=== PATIENT | male | born 1950 | race Caucasian/White ===

== ENCOUNTER 2023-05-04 09:08 | Emergency (ER) | payer MEDICAID ==
[~2023-05-04] VITALS: Ht 167.6 cm; Wt 68.0 kg
[2023-05-04 09:21] VITALS: BP_SYST 160; PULSE 80; RESP 18; TEMP 98; O2SAT 97
--- NOTE | 2023-05-04 09:23 | NUR ---
RECEIVED PT FROM FANNY JEFFERSON. ASSUMED CARE. PT BIB [facility]ILY [facility] WITH C/O BEING UNABLE TO SLEEP DUE TO NEUROPATHY. PT IS AAOX4. ON R/A. A/V SHUNT IN PLACE AND PT HAS DIALYSIS. PMH DM1, HTN, NEUROPATHY. VSS. SIDERAILS UP X2.
--- NOTE | 2023-05-04 09:27 | NUR ---
DR. ARRIETA AT BEDSIDE TO ASSESS PT.
[2023-05-04] MEDS ORDERED: hydrALAZINE HCL 20 MG/ML VIAL IVP ONE (09:30)
[2023-05-04] MEDS ORDERED: ENALAPRILAT DIHYDRATE 1.25 MG/ML VIAL IVP ONE (09:30)
--- NOTE | 2023-05-04 09:55 | NUR ---
# 20 gauge angiocath placed to RH. Use of asceptic technique. Opsite placed over site. Blood return noted. Blood for lab drawn from site. Flushed with 10 cc of normal saline. No evidence of infiltration noted. Patient tolerated well.
[2023-05-04 09:58] LABS: BASOPHILS # (AUTO) 0.1 K/uL (0.0-0.2); EOSINOPHILS # (AUTO) 0.2 K/uL (0.0-0.4); EOSINOPHILS % (AUTO) 2.5 % (0.0-4.0); HEMATOCRIT 36.4 % (36-54); HEMOGLOBIN 11.8 g/dL (14.0-18.0); LYMPHOCYTES # (AUTO) 1.8 K/uL (1.0-5.5); LYMPHOCYTES % (AUTO) 28.2 % (20.5-51.5); MEAN CORPUSCULAR HEMOGLOBIN 31 pg (27-31); MEAN CORPUSCULAR HGB CONC 33 % (32-36); MEAN CORPUSCULAR VOLUME 95 fL (79.0-98.0); MONOCYTES # (AUTO) 0.9 K/uL (0.0-1.0); MONOCYTES % (AUTO) 13.4 % (1.7-9.3); NEUTROPHILS # (AUTO) 3.6 K/uL (1.8-7.7); NEUTROPHILS % (AUTO) 54.9 % (40.0-70.0); PLATELET COUNT (AUTO) 264 K/uL (130-430); RED BLOOD CELL COUNT(AUTO) 3.85 MIL/uL (4.2-6.2); RED CELL DISTRIBUTION WIDTH 16.7 % (9.0-15.0); WHITE BLOOD COUNT (AUTO) 6.5 K/uL (4.8-10.8)
[2023-05-04 10:03] LABS: ANION GAP 13 (5-15); CALCIUM 9.7 mg/dL (8.4-11.0); CHLORIDE 97 mmol/L (98-107); CREATININE 6.79 mg/dL (0.55-1.30); GLUCOSE 139 mg/dL (74-106); UREA NITROGEN, BLOOD 42 mg/dL (8-21)
--- NOTE | 2023-05-04 10:07 | NUR ---
b/p now 137/70. Vasotec and hydralazine IVP held, Dr. Khan made aware.
--- NOTE | 2023-05-04 10:08 | NUR ---
EKG OBTAINED AND GIVE TO DR. ARRIETA. BLOOD OBTAINED BY TOGGLER.
[2023-05-04 10:10] LABS: ALANINE AMINOTRANSFERASE 23 U/L (12-78); ALBUMIN 3.7 g/dL (3.4-4.8); ASPARTATE AMINOTRANSFERASE 20 U/L (10-37); TOTAL BILIRUBIN 1.1 mg/dL (0.0-1.0)
[2023-05-04] MEDS ORDERED: NIFE60TA65 PO (10:24)
[2023-05-04] MEDS ORDERED: LYR25 PO ×2 (10:24→10:30)
[2023-05-04] MEDS ORDERED: TEMA15CA5 PO ×2 (10:24→10:30)
[2023-05-04] MEDS ORDERED: PRO40 PO (10:24)
--- NOTE | 2023-05-04 10:35 | NUR ---
Patient given written and verbal discharge instructions and verbalizes understanding. ER MD discussed with patient the results and treatment provided. Patient in stable condition. ID arm band removed. IV catheter removed intact and dressing applied, no active bleeding. Rx of Lyrica nifedipine Protonix and Restoril given. Patient educated on pain management and to follow up with PMD. Opportunity for questions provided and answered. Medication side effect fact sheet provided.
[2023-05-04 10:39] VITALS: BP_SYST 131; PULSE 73; RESP 18; TEMP 98; O2SAT 97
== END 2023-05-04 10:35 | disposition home or self-care (01) ==
LOC: SED 09:08
DX: I12.9 Hypertensive chronic kidney disease with stage 1 through stage 4 chronic kidney disease, or unspecified chronic kidney disease (principal); N18.9 Chronic kidney disease, unspecified; G47.00 Insomnia, unspecified; Z79.899 Other long term (current) drug therapy
CPT/HCPCS: 99285; 96374; 71045; 96375; 80053; 83880; 85025; 84484; 36415; 93005; J0360